=== PATIENT | female | born 1930 | race Caucasian/White ===

== ENCOUNTER 2019-05-24 19:14 | Inpatient (IN) | payer MEDICARE, MEDICAID ==
[~2019-05-24] VITALS: Ht 167.6 cm; Wt 55.3 kg
[2019-05-24 19:00] VITALS: BP 128/60
[~2019-05-24 19:14] MED LIST: ASPI-610 PO; Acetaminophen PO; CALC-555 PO; CRAN450T9 PO; DOCU-141 PO; HYDR-3326 PO; Lactose-Free Food PO; MAGN400O6 PO; METO25TA6 PO; PANT40TA2 PO
[2019-05-24] MEDS ORDERED: ACET-2154 PO (20:16)
[2019-05-24] MEDS ORDERED: APIX2.5T PO (20:16)
[2019-05-24] MEDS ORDERED: MAGN400O6 PO (20:16)
[2019-05-24] MEDS ORDERED: HYDR-3326 PO (20:16)
[2019-05-24] MEDS ORDERED: ONDA4TAB5 PO (20:16)
[2019-05-24] MEDS ORDERED: METO100T14 PO (20:16)
[2019-05-24] MEDS ORDERED: FERR325T24 PO (20:16)
[2019-05-24] MEDS ORDERED: MAG355OR18 PO (20:16)
[2019-05-24] MEDS ORDERED: MAG HYDROX/AL HYDROX/SIMETH 30 ML LIQUID UDC PO PRN (20:30)
[2019-05-24] MEDS ORDERED: MAGNESIUM HYDROXIDE 30 ML LIQUID UDC PO PRN (20:30)
[2019-05-24] MEDS ORDERED: ACETAMINOPHEN 325 MG TABLET PO PRN (20:30)
[2019-05-24] MEDS ORDERED: ONDANSETRON HCL 4 MG TABLET PO PRN (20:30)
[2019-05-24] MEDS: METOPROLOL TARTRATE 50 MG TABLET PO SCH (22:24)
--- NOTE | 2019-05-24 23:00 | NUR ---
Received pt resting in bed. AAO x3. No acute distress noted. Oriented pt to the unit. Pictures taken and placed in chart. Pertinent assessments done. MRSA swab sent to lab. 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 VS WNL. Safety measures maintained. Call light within reach. Will continue to monitor.
[2019-05-24] MEDS: HYDROCODONE/APAP 5-325MG TABLET PO PRN (23:49)
[2019-05-25 05:46] VITALS: BP 153/81
[2019-05-25] MEDS: FERROUS SULFATE 325 MG TABEC PO SCH (08:34)
[2019-05-25] MEDS: METOPROLOL TARTRATE 50 MG TABLET PO SCH ×2 (08:34→21:03)
[2019-05-25 08:43] VITALS: BP 148/64
[2019-05-25] MEDS ORDERED: APIXABAN 5 MG TABLET PO ONE ×2 (10:30→17:15)
[2019-05-25] MEDS: HYDROCODONE/APAP 5-325MG TABLET PO PRN ×2 (11:42→23:41)
--- NOTE | 2019-05-25 15:01 | NUR ---
INTERDISCIPLINARY TEAM CONFERENCE
[2019-05-25 15:53] VITALS: BP 144/64
--- NOTE | 2019-05-25 17:56 | NUR ---
Patient started therapy. tolerated well. Pain management given prior to therapy and if needed with good effect. Seen by MD Romo with routine tylenol every 8hours. not in distress. will continue monitor
[2019-05-25 20:26] VITALS: BP 138/72
[2019-05-25] MEDS: ACETAMINOPHEN 325 MG TABLET PO SCH (21:04)
--- NOTE | 2019-05-25 21:29 | NUR ---
Received pt resting in bed. AAO x3. No acute distress noted. Colostomy bag in placed. Due meds given as ordered. Pt requested for sleeping pill. Notified Dr. Romo. New order for trazadone 50 mg HS PRN. Safety measures maintained. Call light within reach. Will continue to monitor.
[2019-05-25] MEDS ORDERED: TRAZODONE 50 MG TABLET ONE (22:06)
[2019-05-25] MEDS: TRAZODONE 50 MG TABLET PO PRN (22:11)
[2019-05-26 05:17] VITALS: BP 136/66
[2019-05-26] MEDS: ACETAMINOPHEN 325 MG TABLET PO SCH ×3 (05:55→21:11)
[2019-05-26 06:43] LABS: BASOPHILS % (AUTO) 0.6 % (0.0-2.0); EOSINOPHILS # (AUTO) 0.3 K/uL (0.0-0.7); EOSINOPHILS % (AUTO) 5.4 % (0.0-7.0); HEMATOCRIT 23.2 % (31.2-41.9); HEMOGLOBIN 8.1 g/dL (10.9-14.3); LYMPHOCYTES # (AUTO) 0.6 K/uL (20.0-40.0); LYMPHOCYTES % (AUTO) 9.6 % (20.5-51.5); MEAN CORPUSCULAR HGB CONC 35 g/dL (32.3-35.6); MEAN CORPUSCULAR VOLUME 91.4 fL (75.5-95.3); MONOCYTES # (AUTO) 0.8 K/uL (2.0-10.0); MONOCYTES % (AUTO) 13.7 % (0.0-11.0); NEUTROPHILS # (AUTO) 4.1 K/uL (1.8-8.9); NEUTROPHILS % (AUTO) 70.7 % (38.5-71.5); PLATELET COUNT (AUTO) 234 K/uL (179-408); RED BLOOD CELL COUNT(AUTO) 2.54 MIL/uL (3.63-4.92); WHITE BLOOD COUNT (AUTO) 5.8 K/uL (3.8-11.8)
[2019-05-26 06:56] LABS: ALANINE AMINOTRANSFERASE 8 U/L (14-59); ALKALINE PHOSPHATASE 97 U/L (50-136); ASPARTATE AMINOTRANSFERASE 14 U/L (15-37); BILIRUBIN,TOTAL 1.2 mg/dL (0.2-1.0); CARBON DIOXIDE 26 mmol/L (21-32); CHLORIDE 101 mmol/L (98-107); CREATININE 0.6 mg/dL (0.6-1.3); GLUCOSE 92 mg/dL (74-106); MAGNESIUM 1.6 mg/dL (1.8-2.4); PHOSPHOROUS 3.4 mg/dL (2.5-4.9); POTASSIUM 4.2 mmol/L (3.5-5.1); TOTAL PROTEIN, SERUM 5.7 g/dL (6.4-8.2); UREA NITROGEN, BLOOD 9 mg/dL (7-18)
[2019-05-26] MEDS ORDERED: APIXABAN 5 MG TABLET PO ONE (09:00)
[2019-05-26] MEDS: FERROUS SULFATE 325 MG TABEC PO SCH (09:07)
[2019-05-26] MEDS: METOPROLOL TARTRATE 50 MG TABLET PO SCH ×2 (09:09→21:06)
[2019-05-26] MEDS: HYDROCODONE/APAP 5-325MG TABLET PO PRN ×2 (10:55→16:00)
[2019-05-26 11:10] VITALS: BP 143/65
[2019-05-26] MEDS ORDERED: MAGNESIUM OXIDE 400 MG TABLET PO ONE (14:00)
[2019-05-26 16:39] VITALS: BP 110/50
[2019-05-26] MEDS ORDERED: APIXABAN 5 MG PO SCH (18:21)
[2019-05-26] MEDS: APIXABAN 2.5 MG PO SCH (18:48)
--- NOTE | 2019-05-26 18:55 | NUR ---
Patient alert, oriented x 3, not in any form of acute distress. Medicated with [place] PRN for pain with noted relief. Patient participated with therapy. Assisted with her needs promptly. Due medications administered and tolerated well. Surgical wound well coaptated with dave with clean and dry dressing. Call light and frequently used items placed within reach. Will endorse accordingly to night shift supervisor nurse.
[2019-05-26 21:32] VITALS: BP 125/70
--- NOTE | 2019-05-26 21:35 | NUR ---
Patient received in bed. AAO x3. No acute distress or SOB noted. Very hard of hearing. On room air. Complained of pain at left hip. Colostomy bag on the left side of abdomen. All due medication given and tolerated well. Physical assessment done. Safety measures observed. Fall precaution maintained. Bed in low position, side rails up x2 for safety, brake and alarm on. Call light and personal belongings within reach. Continue to monitor.
--- NOTE | 2019-05-26 22:00 | NUR ---
Patient refused Tylenol 650 mg stated, "I want to tolerate my pain without using pain killer". Suggested to ask for pain medication if she cannot tolerate the pain. Tylenol was returned. Continue to monitor.
[2019-05-27] MEDS: ACETAMINOPHEN 325 MG TABLET PO SCH ×3 (06:00→21:57)
[2019-05-27 06:37] VITALS: BP 153/71
--- NOTE | 2019-05-27 07:57 | NUR ---
patient is in bed, sleeping, no sob, no acute distress noted
[2019-05-27] MEDS: METOPROLOL TARTRATE 50 MG TABLET PO SCH ×2 (08:22→20:22)
[2019-05-27] MEDS: FERROUS SULFATE 325 MG TABEC PO SCH (08:22)
[2019-05-27] MEDS: APIXABAN 2.5 MG PO SCH ×2 (08:24→17:43)
[2019-05-27] MEDS: HYDROCODONE/APAP 5-325MG TABLET PO PRN ×2 (08:53→20:22)
[2019-05-27 10:24] VITALS: BP 142/69
--- NOTE | 2019-05-27 15:46 | NUR ---
PATIENT COMPLAINED ABOUT ROOM TEMP, ENGINEERING CALLED AND THEY CHECKED, OFFERED PATIENT ROOM CHANGED, PATIENT STATED SHE DOES NOT WANT TO CHANGE THE ROOM AT THIS TIME, SHE IS FINE AND TOLERATE IT. INSTRUCTED PATIENT THAT LET NURSING KNOW IF SHE HAS PROBLEM WITH TEMP AND WOULD LIKE TO CHANGE THE ROOM. PATIENT VERBALIZED UNDERSTANDING OF IT
[2019-05-27 16:20] VITALS: BP 135/66
[2019-05-27 16:21] VITALS: BP 115/59
--- NOTE | 2019-05-27 16:44 | NUR ---
INDIVIDUALIZED OVERALL PLAN OF CARE
--- NOTE | 2019-05-27 19:51 | NUR ---
Patient received in bed. AAO x3. No acute distress or SOB noted. Very hard of hearing. On room air. Complained of pain at left hip, rated 8/10 on numeric scale. Colostomy bag on the left side of abdomen. Physical assessment done. Safety measures observed. Fall precaution maintained. Bed in low position, side rails up x2 for safety, brake and alarm on. Call light and personal belongings within reach. Continue to monitor.
[2019-05-27 20:40] VITALS: BP 125/65
--- NOTE | 2019-05-27 22:00 | NUR ---
Patient refused Tylenol 650 mg. Stated, "I don't need right now". Tylenol was returned. Continue to monitor.
[2019-05-27] MEDS: TRAZODONE 50 MG TABLET PO PRN (23:34)
[2019-05-28] MEDS: ACETAMINOPHEN 325 MG TABLET PO SCH ×3 (06:00→22:00)
[2019-05-28 06:11] VITALS: BP 141/63
[2019-05-28 08:00] VITALS: BP 108/69
[2019-05-28] MEDS: METOPROLOL TARTRATE 50 MG TABLET PO SCH ×2 (09:27→21:21)
[2019-05-28] MEDS: FERROUS SULFATE 325 MG TABEC PO SCH (09:27)
[2019-05-28] MEDS: HYDROCODONE/APAP 5-325MG TABLET PO PRN ×2 (09:28→14:02)
[2019-05-28] MEDS: APIXABAN 2.5 MG PO SCH ×2 (09:31→17:38)
--- NOTE | 2019-05-28 10:50 | NUR ---
Patient noted sitting in bed, complaints of pain, prn norco given, took all AM medications, call light in reach, bed locked and in lowest position, all needs met
[2019-05-28 16:26] VITALS: BP 116/49
[2019-05-28 19:50] VITALS: BP 120/57
[2019-05-29 05:21] VITALS: BP 124/66
--- NOTE | 2019-05-29 05:22 | NUR ---
Patient received in bed. AAO x3. No acute distress or SOB noted. Very hard of hearing. On room air. Complained of pain at left hip. Colostomy bag on the left side of abdomen. All due medication given and tolerated well. Surgical dressing changed. Physical assessment done. Safety measures observed. Fall precaution maintained. Bed in low position, side rails up x2 for safety, brake and alarm on. Call light and personal belongings within reach. Continue to monitor and will endorse to the day shift nurse.
[2019-05-29 07:59] VITALS: BP 139/73
[2019-05-29] MEDS: HYDROCODONE/APAP 5-325MG TABLET PO PRN (08:18)
[2019-05-29] MEDS: FERROUS SULFATE 325 MG TABEC PO SCH (08:18)
[2019-05-29] MEDS: METOPROLOL TARTRATE 50 MG TABLET PO SCH ×2 (08:19→20:35)
[2019-05-29] MEDS: APIXABAN 2.5 MG PO SCH ×2 (08:20→16:50)
[2019-05-29] MEDS: MIRALAX 17 GM POWD.PACK PO SCH ×3 (08:20→17:00)
--- NOTE | 2019-05-29 11:39 | NUR ---
Received patient sleeping in bed in stable condition. not in distress. Continue therapy for unsteady gait and ambulation. Continue pain management prior to therapy. tolerated well. will continue monitor
[2019-05-29 16:24] VITALS: BP 127/56
--- NOTE | 2019-05-29 19:40 | NUR ---
Received pt up in bed, awake, AxO x4. Discussed and reviewed plan of care, pt verbalizes understanding. No acute distress noted. Pt denies pain or discomfort at this time. Continue pain management. Safety precautions and comfort measures maintained. Call light within reach. Will continue to monitor.
[2019-05-29 20:36] VITALS: BP 110/47
--- NOTE | 2019-05-29 21:30 | NUR ---
Colostomy care done. Kept clean, dry and intact. Noted to have large BM x1, soft and brown. Specimen sent for OB stool. Pt tolerated care well. Will continue with plan of care.
[2019-05-29 22:18] LABS: *OCCULT BLOOD STOOL NEGATIVE (NEGATIVE)
[2019-05-30 05:10] VITALS: BP 125/60
[2019-05-30 07:20] VITALS: BP 125/60
[2019-05-30 07:21] LABS: BASOPHILS # (AUTO) 0.1 K/uL (0.0-8.0); EOSINOPHILS # (AUTO) 0.3 K/uL (0.0-0.7); EOSINOPHILS % (AUTO) 4.9 % (0.0-7.0); HEMATOCRIT 25.1 % (31.2-41.9); HEMOGLOBIN 8.6 g/dL (10.9-14.3); LYMPHOCYTES # (AUTO) 0.6 K/uL (20.0-40.0); LYMPHOCYTES % (AUTO) 10.6 % (20.5-51.5); MEAN CORPUSCULAR HEMOGLOBIN 31.8 uug (24.7-32.8); MEAN CORPUSCULAR HGB CONC 34 g/dL (32.3-35.6); MEAN CORPUSCULAR VOLUME 92.6 fL (75.5-95.3); MONOCYTES # (AUTO) 0.8 K/uL (2.0-10.0); MONOCYTES % (AUTO) 12.9 % (0.0-11.0); NEUTROPHILS # (AUTO) 4.2 K/uL (1.8-8.9); NEUTROPHILS % (AUTO) 70.6 % (38.5-71.5); PLATELET COUNT (AUTO) 343 K/uL (179-408); RED BLOOD CELL COUNT(AUTO) 2.72 MIL/uL (3.63-4.92)
[2019-05-30 07:44] LABS: IRON, SERUM 28 ug/dL (50-175)
[2019-05-30 07:46] LABS: THYROID STIMULATING HORMONE 2.792 mIU/mL (0.358-3.740)
[2019-05-30 08:11] LABS: ALANINE AMINOTRANSFERASE 9 U/L (14-59); ALKALINE PHOSPHATASE 104 U/L (50-136); ASPARTATE AMINOTRANSFERASE 14 U/L (15-37); BILIRUBIN,TOTAL 1.2 mg/dL (0.2-1.0); CARBON DIOXIDE 26 mmol/L (21-32); CHLORIDE 98 mmol/L (98-107); CHOLESTEROL 101 mg/dL (<200); CREATININE 0.5 mg/dL (0.6-1.3); GLUCOSE 87 mg/dL (74-106); HDL CHOLESTEROL 47 mg/dL (40-60); MAGNESIUM 1.5 mg/dL (1.8-2.4); PHOSPHOROUS 3.2 mg/dL (2.5-4.9); POTASSIUM 3.8 mmol/L (3.5-5.1); TOTAL PROTEIN, SERUM 5.9 g/dL (6.4-8.2); TRIGLYCERIDES 55 MG/DL (30-150); UREA NITROGEN, BLOOD 11 mg/dL (7-18)
[2019-05-30] MEDS: FERROUS SULFATE 325 MG TABEC PO SCH (08:45)
[2019-05-30] MEDS: METOPROLOL TARTRATE 50 MG TABLET PO SCH ×2 (08:45→20:37)
[2019-05-30] MEDS: APIXABAN 2.5 MG PO SCH ×2 (08:46→16:44)
[2019-05-30] MEDS: MIRALAX 17 GM POWD.PACK PO SCH ×2 (08:48→16:44)
[2019-05-30] MEDS ORDERED: MAGNESIUM OXIDE 400 MG TABLET PO ONE (10:00)
[2019-05-30] MEDS: HYDROCODONE/APAP 5-325MG TABLET PO PRN (10:13)
[2019-05-30] MEDS: ACETAMINOPHEN 325 MG TABLET PO PRN (13:20)
[2019-05-30 15:20] VITALS: BP 132/65
[2019-05-30] MEDS: PROTEIN SUPPLEMENT (PROSTAT) 30 ML LIQUID PO SCH ×2 (16:47→17:33)
--- NOTE | 2019-05-30 18:28 | NUR ---
Patient continue therapy for unsteady gait and ADL ability. yellowish discharge noted on left upper hip dressing- change, slight redness on surgical site. For FF UP consult with MD Vuong. Sodium 131 L result realyed ro MD Diaz. no new order. MG 1.5 L aware, ordered MG PO 2 tabs. no new order for BUN and crea high result. Encourage fluid intake with fair effect. will continue monitor
--- NOTE | 2019-05-30 19:30 | NUR ---
Patient alert and oriented x 2-3. Hard of hearing, and belligerent. No C/O pain or SOB at this time. Colostomy bag within normal limits. Stat X-Ray pending. Side rails up bilaterally for safety. Call light and frequently used items within reach. Will continue to monitor.
[2019-05-30 20:47] VITALS: BP 121/68
[2019-05-31 06:54] VITALS: BP 149/68
[2019-05-31 08:20] VITALS: BP 158/63
[2019-05-31] MEDS: PROTEIN SUPPLEMENT (PROSTAT) 30 ML LIQUID PO SCH ×2 (10:04→17:57)
[2019-05-31] MEDS: METOPROLOL TARTRATE 50 MG TABLET PO SCH ×2 (10:05→21:09)
[2019-05-31] MEDS: FERROUS SULFATE 325 MG TABEC PO SCH (10:05)
[2019-05-31] MEDS: MIRALAX 17 GM POWD.PACK PO SCH ×2 (10:05→17:56)
[2019-05-31] MEDS: APIXABAN 2.5 MG PO SCH ×2 (10:10→17:56)
[2019-05-31] MEDS: HYDROCODONE/APAP 5-325MG TABLET PO PRN (10:18)
[2019-05-31] MEDS ORDERED: TRIA0.252 PO (10:30)
[2019-05-31] MEDS ORDERED: LORA0.5T PO (10:33)
[2019-05-31 15:41] VITALS: BP 144/79
[2019-05-31 17:41] LABS: *BILIRUBIN,URIN NEGATIVE (NEGATIVE); *BLOOD, URINE 2+ (NEGATIVE); *CLARITY,URINE CLOUDY (CLEAR); *COLOR,URINE Other (YELLOW); *KETONES,URINE 1+ (NEGATIVE); LEUKOCYTE ESTERASE ,URINE 3+ (NEGATIVE); NITRITE, URINE POSITIVE (NEGATIVE); PH,URINE 7.5 (5.0-8.0); UGLUCOSE NEGATIVE (NEGATIVE)
[2019-05-31 17:52] LABS: WBC,URINE TNTC /HPF (0-3)
[2019-05-31 17:55] LABS: BACTERIA,URINE MANY /HPF (NONE SEEN); SQUAMOUS EPITHELIAL CELL,UR MODERATE /HPF (NONE SEEN)
[2019-05-31] MEDS: LORAZEPAM 0.5 MG TABLET PO PRN (18:23)
--- NOTE | 2019-05-31 19:04 | NUR ---
Patient has a uti reported to Dr. Monge, awaiting culture and sensitivity results. Antibiotics started per Dr. Diaz.
[2019-05-31 20:24] VITALS: BP 134/53
[2019-05-31] MEDS: NITROFURANTOIN/NITROFURAN MAC 100 MG CAPSULE PO SCH (21:01)
[2019-05-31] MEDS: TRIAZOLAM 0.125 MG TABLET PO PRN (21:09)
[2019-06-01] MEDS: ACETAMINOPHEN 325 MG TABLET PO PRN (02:30)
[2019-06-01 05:48] VITALS: BP 152/70
[2019-06-01 07:20] VITALS: BP 154/73
--- NOTE | 2019-06-01 07:50 | NUR ---
patient is alert and oriented x 4; able to express needs verbally. Breathing is even and unlabored. In no acute distress. Skin warm and dry to touch. Urine culture still pending. Colostomy bag changed as needed. Due and PRN medications administered as ordered and scheduled and tolerated well. Skin kept clean and dry, made comfortable. Safety measures in place, call light left within easy reach. endorsed to next shift and will continue with care.
[2019-06-01] MEDS: NITROFURANTOIN/NITROFURAN MAC 100 MG CAPSULE PO SCH ×2 (08:31→20:28)
[2019-06-01] MEDS: MIRALAX 17 GM POWD.PACK PO SCH ×2 (08:32→16:57)
[2019-06-01] MEDS: FUROSEMIDE 20 MG TABLET PO SCH (08:32)
[2019-06-01] MEDS: PROTEIN SUPPLEMENT (PROSTAT) 30 ML LIQUID PO SCH ×2 (08:32→17:09)
[2019-06-01] MEDS: FERROUS SULFATE 325 MG TABEC PO SCH (08:32)
[2019-06-01] MEDS: METOPROLOL TARTRATE 50 MG TABLET PO SCH ×2 (08:32→20:27)
[2019-06-01] MEDS: APIXABAN 2.5 MG PO SCH ×2 (08:34→16:57)
[2019-06-01] MEDS: LORAZEPAM 0.5 MG TABLET PO PRN (12:27)
--- NOTE | 2019-06-01 12:49 | NUR ---
INTERDISCIPLINARY TEAM CONFERENCE
--- NOTE | 2019-06-01 13:04 | NUR ---
Patient started macrobid for UTI. no adverse reaction noted. not in distress. still pending UA/CS result. Anxious and refuse to eat lunch time. Ativan 0.5 mg every 12 hours given. Dressing change for surgical wound if needed. no drainage noted during rounds. not in distress. Continue BM management miralax powder. Continue with colostomy bag. change bag if needed. will continue monitor
[2019-06-01] MEDS: HYDROCODONE/APAP 5-325MG TABLET PO PRN ×2 (14:38→20:29)
[2019-06-01 15:30] VITALS: BP 148/84
[2019-06-01] MEDS: TRAZODONE 50 MG TABLET PO PRN (20:28)
[2019-06-01 20:32] VITALS: BP 150/63
--- NOTE | 2019-06-02 05:19 | NUR ---
Quiet night. aao x3-4 incontinent of urine x2 kept clean and dry needs attended. fall precautions maintained. Pain meds given as needed for left hip pain. Colostomy intact, brownish stool noted. needs attended. On antibiotic for E coli. Tolerated well. Will monitor patient. No acute distress noted. Fall precautions maintained. Siderails up for safety.
[2019-06-02 06:15] VITALS: BP 157/69
[2019-06-02] MEDS: PROTEIN SUPPLEMENT (PROSTAT) 30 ML LIQUID PO SCH ×2 (08:16→19:09)
[2019-06-02] MEDS: METOPROLOL TARTRATE 50 MG TABLET PO SCH ×2 (08:17→20:40)
[2019-06-02] MEDS: NITROFURANTOIN/NITROFURAN MAC 100 MG CAPSULE PO SCH ×2 (08:18→20:40)
[2019-06-02] MEDS: FERROUS SULFATE 325 MG TABEC PO SCH (08:18)
[2019-06-02] MEDS: AMLODIPINE 5 MG TABLET PO SCH (08:18)
[2019-06-02] MEDS: FUROSEMIDE 20 MG TABLET PO SCH (08:18)
[2019-06-02] MEDS: MIRALAX 17 GM POWD.PACK PO SCH ×2 (08:18→16:26)
[2019-06-02] MEDS: APIXABAN 2.5 MG PO SCH ×2 (08:26→16:26)
[2019-06-02 08:36] VITALS: BP 167/75
--- NOTE | 2019-06-02 08:38 | NUR ---
patient noted sitting up in bed, requesting pain medication, PRN norco given, no signs of distress noted, call light in reach, bed locked and in lowest position, all needs met
[2019-06-02] MEDS: HYDROCODONE/APAP 5-325MG TABLET PO PRN ×2 (10:20→20:41)
[2019-06-02 16:00] VITALS: BP 130/79
[2019-06-02] MEDS: LORAZEPAM 0.5 MG TABLET PO PRN (16:23)
[2019-06-02 20:05] VITALS: BP 106/52
[2019-06-02] MEDS: TRIAZOLAM 0.125 MG TABLET PO PRN (20:41)
[2019-06-03 04:53] VITALS: BP 150/70
--- NOTE | 2019-06-03 06:31 | NUR ---
slept most of the shift. no acute distress noted. VSS. Incontinent of bowel and bladder. No BM noted this shift. Will monitor. kept comfortable.fall precautions maintained.
[2019-06-03 08:00] VITALS: BP 140/75
[2019-06-03] MEDS: HYDROCODONE/APAP 5-325MG TABLET PO PRN ×3 (08:35→20:42)
[2019-06-03] MEDS: NITROFURANTOIN/NITROFURAN MAC 100 MG CAPSULE PO SCH ×2 (08:35→20:42)
[2019-06-03] MEDS: AMLODIPINE 5 MG TABLET PO SCH (08:36)
[2019-06-03] MEDS: FERROUS SULFATE 325 MG TABEC PO SCH (08:36)
[2019-06-03] MEDS: MIRALAX 17 GM POWD.PACK PO SCH ×2 (08:36→16:48)
[2019-06-03] MEDS: METOPROLOL TARTRATE 50 MG TABLET PO SCH ×2 (08:36→20:41)
[2019-06-03] MEDS: FUROSEMIDE 20 MG TABLET PO SCH (08:36)
[2019-06-03] MEDS: PROTEIN SUPPLEMENT (PROSTAT) 30 ML LIQUID PO SCH ×2 (08:37→16:57)
[2019-06-03] MEDS: APIXABAN 2.5 MG PO SCH ×2 (08:37→16:48)
[2019-06-03] MEDS: LORAZEPAM 0.5 MG TABLET PO PRN (11:08)
[2019-06-03 16:40] VITALS: BP 128/72
[2019-06-03 19:51] VITALS: BP 102/48
--- NOTE | 2019-06-03 19:57 | NUR ---
resting in bed upon initial rounds. AAOx2-3 needs attended. VSS. no acute distress noted. colostomy intact, formed stools noted. no complaints presented at this time. will monitor patient. fall precautions maintained. siderails up for safety. incontinent of urine x2. kept clean and dry.
[2019-06-03] MEDS: TRIAZOLAM 0.125 MG TABLET PO PRN (20:42)
[2019-06-04 04:48] VITALS: BP 137/68
--- NOTE | 2019-06-04 07:55 | NUR ---
patient noted resting in bed, no facial cues of pain noted, no signs of distress noted, call light in reach, bed locked and in lowest position, all needs met
[2019-06-04 08:00] VITALS: BP 147/55
[2019-06-04] MEDS: FERROUS SULFATE 325 MG TABEC PO SCH (08:43)
[2019-06-04] MEDS: HYDROCODONE/APAP 5-325MG TABLET PO PRN ×2 (08:43→14:21)
[2019-06-04] MEDS: FUROSEMIDE 20 MG TABLET PO SCH (08:44)
[2019-06-04] MEDS: METOPROLOL TARTRATE 50 MG TABLET PO SCH ×2 (08:44→20:30)
[2019-06-04] MEDS: AMLODIPINE 5 MG TABLET PO SCH (08:45)
[2019-06-04] MEDS: NITROFURANTOIN/NITROFURAN MAC 100 MG CAPSULE PO SCH ×2 (08:45→20:30)
[2019-06-04] MEDS: MIRALAX 17 GM POWD.PACK PO SCH ×2 (08:45→17:03)
[2019-06-04] MEDS: APIXABAN 2.5 MG PO SCH ×2 (08:46→17:04)
[2019-06-04] MEDS: PROTEIN SUPPLEMENT (PROSTAT) 30 ML LIQUID PO SCH ×2 (08:46→17:05)
[2019-06-04] MEDS: LORAZEPAM 0.5 MG TABLET PO PRN ×2 (12:08→23:39)
[2019-06-04 16:36] VITALS: BP 109/55
--- NOTE | 2019-06-04 19:35 | NUR ---
Patient received in bed. AAO x3. No acute distress or SOB noted. Very hard of hearing. On room air. No Complain of pain at this time. Colostomy bag on the left side of abdomen. Physical assessment done. Safety measures observed. Fall precaution maintained. Bed in low position, side rails up x2 for safety, brake and alarm on. Call light and personal belongings within reach. Continue to monitor.
--- NOTE | 2019-06-04 19:40 | NUR ---
upper left hip incision redness with drainage noted MD Diaz notified with orders to have infectious disease consult [facility] Adam Cole placed new orders for incision site clean with Normal saline apply triple antibiotic oint BID and PRN place nonadhering pad with minimal tape
[2019-06-04] MEDS: TRIAZOLAM 0.125 MG TABLET PO PRN (21:05)
[2019-06-04 22:06] VITALS: BP 109/44
[2019-06-05 04:00] VITALS: BP 117/54
[2019-06-05 08:00] VITALS: BP 129/63
--- NOTE | 2019-06-05 08:00 | NUR ---
patient in bed, awake, no sob, resp even nonlabored,skin warm and dry to touch, no acute distress noted
[2019-06-05] MEDS: FUROSEMIDE 20 MG TABLET PO SCH (08:10)
[2019-06-05] MEDS: FERROUS SULFATE 325 MG TABEC PO SCH (08:10)
[2019-06-05] MEDS: NITROFURANTOIN/NITROFURAN MAC 100 MG CAPSULE PO SCH ×2 (08:11→20:09)
[2019-06-05] MEDS: PROTEIN SUPPLEMENT (PROSTAT) 30 ML LIQUID PO SCH ×2 (08:11→17:01)
[2019-06-05] MEDS: MIRALAX 17 GM POWD.PACK PO SCH ×2 (08:11→16:45)
[2019-06-05] MEDS: AMLODIPINE 5 MG TABLET PO SCH (08:13)
[2019-06-05] MEDS: METOPROLOL TARTRATE 50 MG TABLET PO SCH ×2 (08:13→20:09)
[2019-06-05] MEDS: NEOMY/BACITRAC/POLYMI OINT 28.35 GM TUBE TOP SCH ×2 (08:14→16:09)
[2019-06-05] MEDS: APIXABAN 2.5 MG PO SCH ×2 (08:21→16:47)
[2019-06-05] MEDS: LORAZEPAM 0.5 MG TABLET PO PRN (12:09)
[2019-06-05 15:58] VITALS: BP 101/70
[2019-06-05] MEDS: HYDROCODONE/APAP 5-325MG TABLET PO PRN (18:51)
--- NOTE | 2019-06-05 19:30 | NUR ---
Received in bed, resting comfortably. Patient alert and oriented x 2-3. Hard of hearing, and belligerent. No C/O pain or SOB at this time. Colostomy bag within normal limits. Side rails up bilaterally for safety. Call light and frequently used items within reach. Will continue to monitor.
[2019-06-05 20:19] VITALS: BP 104/43
[2019-06-05] MEDS: TRIAZOLAM 0.125 MG TABLET PO PRN (20:50)
[2019-06-06] MEDS: LORAZEPAM 0.5 MG TABLET PO PRN ×2 (00:09→14:26)
[2019-06-06 04:50] VITALS: BP 142/64
--- NOTE | 2019-06-06 07:28 | NUR ---
patient in bed, awake, no sob, resp even nonlabored no acute distress noted
[2019-06-06 07:40] VITALS: BP 145/82
[2019-06-06] MEDS: MIRALAX 17 GM POWD.PACK PO SCH ×2 (08:01→16:27)
[2019-06-06] MEDS: FERROUS SULFATE 325 MG TABEC PO SCH (08:01)
[2019-06-06] MEDS: FUROSEMIDE 20 MG TABLET PO SCH (08:01)
[2019-06-06] MEDS: METOPROLOL TARTRATE 50 MG TABLET PO SCH ×2 (08:02→20:37)
[2019-06-06] MEDS: NEOMY/BACITRAC/POLYMI OINT 28.35 GM TUBE TOP SCH ×2 (08:03→16:28)
[2019-06-06] MEDS: AMLODIPINE 5 MG TABLET PO SCH (08:03)
[2019-06-06] MEDS: HYDROCODONE/APAP 5-325MG TABLET PO PRN ×2 (08:05→20:46)
[2019-06-06] MEDS: PROTEIN SUPPLEMENT (PROSTAT) 30 ML LIQUID PO SCH ×2 (08:06→18:00)
[2019-06-06] MEDS: APIXABAN 2.5 MG PO SCH ×2 (08:07→16:29)
--- NOTE | 2019-06-06 10:00 | NUR ---
patient left for her ortho apt with ambulance
--- NOTE | 2019-06-06 12:51 | NUR ---
patient came back from ortho apt by ambulance
--- NOTE | 2019-06-06 14:50 | NUR ---
received new order for follow up with ortho in one month, Mervin is aware about follow up in one month with xray of full femur to include in discharge instructions, continue WBAT. no other changes noted, patient is alert, oriented x4, no sob,resp even nonlabored,skin warm and dry to touch. no acute distress noted.patient complained burning sensations upon urination, order received for Pyridium as ordered, continue to monitor
--- NOTE | 2019-06-06 15:13 | NUR ---
SPOKE TO PHARMACIST SHILA FROM PHARMACY, PYRIDIUM IS NOT RECOMMENDED FOR THIS PATIENT BECAUSE OF POOR KIDNEY FUNCTION, RECOMMENDED CRANBERRY JUICE, EDUCATED PATIENT TO INCREASE PO FLUIDS TOLERATED, GOOD PERINEAL CARE, CONTINUE TO MONITOR
[2019-06-06 15:15] VITALS: BP 111/57
[2019-06-06 19:30] VITALS: BP 124/58
--- NOTE | 2019-06-06 19:30 | NUR ---
Patient alert and oriented x 2-3. Hard of hearing, but well tempered this evening. No C/O pain or SOB at this time. Colostomy bag within normal limits. Left sided surgical incisions noted to have steri strips on them. Skin around area noted to be red due to adhesive allergy. Side rails up bilaterally for safety. Call light and frequently used items within reach. Will continue to monitor.
[2019-06-06] MEDS: TRIAZOLAM 0.125 MG TABLET PO PRN (20:46)
[2019-06-07 05:23] VITALS: BP 127/66
[2019-06-07 08:39] VITALS: BP 108/66
[2019-06-07] MEDS: AMLODIPINE 5 MG TABLET PO SCH (09:08)
[2019-06-07] MEDS: FUROSEMIDE 20 MG TABLET PO SCH (09:08)
[2019-06-07] MEDS: MIRALAX 17 GM POWD.PACK PO SCH ×2 (09:09→17:00)
[2019-06-07] MEDS: FERROUS SULFATE 325 MG TABEC PO SCH (09:09)
[2019-06-07] MEDS: METOPROLOL TARTRATE 50 MG TABLET PO SCH ×2 (09:09→20:49)
[2019-06-07] MEDS: NEOMY/BACITRAC/POLYMI OINT 28.35 GM TUBE TOP SCH ×2 (09:10→17:22)
[2019-06-07] MEDS: APIXABAN 2.5 MG PO SCH ×2 (09:20→17:24)
[2019-06-07] MEDS: PROTEIN SUPPLEMENT (PROSTAT) 30 ML LIQUID PO SCH ×2 (09:26→17:25)
[2019-06-07 16:53] VITALS: BP 124/51
[2019-06-07 18:07] LABS: *BILIRUBIN,URIN NEGATIVE (NEGATIVE); *BLOOD, URINE 3+ (NEGATIVE); *KETONES,URINE TRACE (NEGATIVE); LEUKOCYTE ESTERASE ,URINE 2+ (NEGATIVE); NITRITE, URINE POSITIVE (NEGATIVE); UGLUCOSE NEGATIVE (NEGATIVE)
[2019-06-07] MEDS: HYDROCODONE/APAP 5-325MG TABLET PO PRN (18:48)
--- NOTE | 2019-06-07 18:52 | NUR ---
Patient complaint pain during urination. MD Sharif ordered UA/CS-collected, sent to laboratory. will continue monitor
[2019-06-07 19:11] LABS: *CLARITY,URINE TURBID (CLEAR); *COLOR,URINE YELLOW (YELLOW)
[2019-06-07 19:12] LABS: RBC,URINE 20-50 /HPF (0-3); WBC,URINE TNTC /HPF (0-3)
[2019-06-07 19:13] LABS: BACTERIA,URINE MANY /HPF (NONE SEEN); CALCIUM OXALATE CRYSTALS,UR FEW /HPF (NONE SEEN); SQUAMOUS EPITHELIAL CELL,UR MODERATE /HPF (NONE SEEN)
[2019-06-07 19:52] VITALS: BP 110/57
--- NOTE | 2019-06-07 20:00 | NUR ---
Patient received into care laying in bed, resting comfortably. Patient has no complaints of pain or discomfort at this time. All safety and fall precaution measures are in place. Call light and personal items are within reach at all times. Will continue to monitor.
[2019-06-07] MEDS: TRIAZOLAM 0.125 MG TABLET PO PRN (20:49)
[2019-06-08] MEDS: HYDROCODONE/APAP 5-325MG TABLET PO PRN (03:06)
[2019-06-08 04:58] VITALS: BP 107/71
--- NOTE | 2019-06-08 06:43 | NUR ---
Patient slept throughout night with one episode of pain at 0300, which was addressed with prescribed analgesics. Prescirbed blood pressure medication was given as ordered and tolerated welll. Safety and fall precaution measures remain in place. VS are wnl and patient is stable. Call light and personal items remain within reach at all times.
[2019-06-08] MEDS: PROTEIN SUPPLEMENT (PROSTAT) 30 ML LIQUID PO SCH ×2 (08:00→18:00)
[2019-06-08 08:03] VITALS: BP 116/62
[2019-06-08] MEDS: MIRALAX 17 GM POWD.PACK PO SCH ×2 (08:44→16:49)
[2019-06-08] MEDS: METOPROLOL TARTRATE 50 MG TABLET PO SCH ×2 (08:44→20:23)
[2019-06-08] MEDS: FUROSEMIDE 20 MG TABLET PO SCH (08:44)
[2019-06-08] MEDS: AMLODIPINE 5 MG TABLET PO SCH (08:44)
[2019-06-08] MEDS: FERROUS SULFATE 325 MG TABEC PO SCH (08:44)
[2019-06-08] MEDS: APIXABAN 2.5 MG PO SCH ×2 (08:45→16:49)
[2019-06-08] MEDS: NEOMY/BACITRAC/POLYMI OINT 28.35 GM TUBE TOP SCH ×2 (08:46→16:50)
--- NOTE | 2019-06-08 12:06 | NUR ---
Patient urine culture- E. Coli relayed to MD Lopes. new order yet. Patient is for discharge tomorrow to SNF. no complaint voiced. will continue monitor
[2019-06-08] MEDS: CEphaleXIN 500 MG CAPSULE PO SCH ×2 (14:31→16:48)
--- NOTE | 2019-06-08 15:36 | NUR ---
INTERDISCIPLINARY TEAM CONFERENCE
[2019-06-08 15:47] VITALS: BP 98/51
--- NOTE | 2019-06-08 17:18 | NUR ---
Patient started cephalexin 500mg BID for 5 more days as ordered by MD Lopes. no adverse reaction noted. Continue colostomy care- intact and patent. no signs of infection noted. will continue monitor
--- NOTE | 2019-06-08 19:40 | NUR ---
Patient received in bed. AAO x3. No acute distress or SOB noted. Hard of hearing. On room air. No Complain of pain at this time. Colostomy bag on the left side of abdomen. Physical assessment done. Safety measures observed. Fall precaution maintained. Bed in low position, side rails up x2 for safety, brake and alarm on. Call light and personal belongings within reach. Continue to monitor.
[2019-06-08] MEDS: TRIAZOLAM 0.125 MG TABLET PO PRN (21:00)
[2019-06-08 21:41] VITALS: BP 120/63
[2019-06-08] MEDS: LORAZEPAM 0.5 MG TABLET PO PRN (22:06)
[2019-06-09] MEDS: HYDROCODONE/APAP 5-325MG TABLET PO PRN ×3 (00:45→12:47)
[2019-06-09 06:04] VITALS: BP 115/56
[2019-06-09 08:00] VITALS: BP 116/52
[2019-06-09] MEDS: CEphaleXIN 500 MG CAPSULE PO SCH (08:10)
[2019-06-09] MEDS: FUROSEMIDE 20 MG TABLET PO SCH (08:11)
[2019-06-09] MEDS: FERROUS SULFATE 325 MG TABEC PO SCH (08:11)
[2019-06-09] MEDS: AMLODIPINE 5 MG TABLET PO SCH (08:11)
[2019-06-09 08:13] VITALS: BP 116/52
[2019-06-09] MEDS: METOPROLOL TARTRATE 50 MG TABLET PO SCH (08:13)
[2019-06-09] MEDS: MIRALAX 17 GM POWD.PACK PO SCH (08:13)
[2019-06-09] MEDS: PROTEIN SUPPLEMENT (PROSTAT) 30 ML LIQUID PO SCH (08:14)
[2019-06-09] MEDS: APIXABAN 2.5 MG PO SCH (08:14)
[2019-06-09] MEDS: NEOMY/BACITRAC/POLYMI OINT 28.35 GM TUBE TOP SCH (08:21)
--- NOTE | 2019-06-09 08:57 | NUR ---
Patient noted resting in bed, took all am medications, no complaints of pain at this time, no signs of distress noted, call light in reach, bed locked and in lowest position, all needs met at this time
[2019-06-09] MEDS: LORAZEPAM 0.5 MG TABLET PO PRN (12:47)
--- NOTE | 2019-06-09 14:31 | NUR ---
Patient being discharged home at this time via [facility] and [facility] ambulance service, PRN Dante given around 1pm prior to 1430 discharge, no complaints of pain, no signs of distress noted, MD Romo and Suly notified of patients discharge, all belongings accounted for, belongings sheet signed by patient, discharge paperwork given, exit care provided, Report given to Andrey Fink (Feliberto QUINTANILLA), all paperwork signed, Pictures of left sided facial bruises and left hip incision site taken and placed in chart
== END 2019-06-09 14:30 | DRG 559 ==
PROVIDERS: ADMIT Physical Medicine & Rehabilitation Pain Medicine; ATTEND Physical Medicine & Rehabilitation Pain Medicine
DX: M80.052D Age-related osteoporosis with current pathological fracture, left femur, subsequent encounter for fracture with routine healing (principal); I50.33 Acute on chronic diastolic (congestive) heart failure; D68.59 Other primary thrombophilia; N39.0 Urinary tract infection, site not specified; E87.1 Hypo-osmolality and hyponatremia; D62 Acute posthemorrhagic anemia; E44.0 Moderate protein-calorie malnutrition; Z68.1 Body mass index [BMI] 19.9 or less, adult; Z85.038 Personal history of other malignant neoplasm of large intestine; I11.0 Hypertensive heart disease with heart failure; I50.9 Heart failure, unspecified; Z85.41 Personal history of malignant neoplasm of cervix uteri; Z93.3 Colostomy status; Z96.641 Presence of right artificial hip joint; Z91.81 History of falling; I48.2 Chronic atrial fibrillation; B96.20 Unspecified Escherichia coli [E. coli] as the cause of diseases classified elsewhere; E83.42 Hypomagnesemia; Z79.01 Long term (current) use of anticoagulants; R26.9 Unspecified abnormalities of gait and mobility; M85.80 Other specified disorders of bone density and structure, unspecified site
CPT/HCPCS: 36415; 71045; 73502; 82378; 82652; 83550; 83735; 84100; 84443; 85025; 87077; 87086; 93307; A4663